=== PATIENT | female | born 1970 | race Two or more races ===

== ENCOUNTER → 2023-10-27 06:35 | Day surgery (SDC) | payer OTHER, SELFPAY | LOC: GI 06:35 | PROVIDERS: ATTENDING PHYSICIAN Internal Medicine Gastroenterology; FAMILY PHYSICIAN Internal Medicine | DX: K50.812 Crohn's disease of both small and large intestine with intestinal obstruction (principal); K56.699 Other intestinal obstruction unspecified as to partial versus complete obstruction; K62.4 Stenosis of anus and rectum; K62.6 Ulcer of anus and rectum; R21 Rash and other nonspecific skin eruption | CPT/HCPCS: 45380; 88305; 88342 ==

== ENCOUNTER → 2024-04-26 06:19 | Day surgery (SDC) | payer OTHER, SELFPAY | LOC: GI 06:19 | PROVIDERS: ATTENDING PHYSICIAN Internal Medicine Gastroenterology; FAMILY PHYSICIAN Internal Medicine | DX: K50.812 Crohn's disease of both small and large intestine with intestinal obstruction (principal); K62.6 Ulcer of anus and rectum; K62.4 Stenosis of anus and rectum; K64.4 Residual hemorrhoidal skin tags; L29.0 Pruritus ani | CPT/HCPCS: 45380; 88305; 88341; 88342 ==

== ENCOUNTER 2024-08-31 06:19 | Day surgery (SDC) | payer OTHER, SELFPAY | END 2024-08-31 12:54 | disposition home or self-care (01) | LOC: GI 06:19 | PROVIDERS: ATTENDING PHYSICIAN Internal Medicine Gastroenterology | DX: Z12.11 Encounter for screening for malignant neoplasm of colon (principal); K50.112 Crohn's disease of large intestine with intestinal obstruction; K62.6 Ulcer of anus and rectum; K62.4 Stenosis of anus and rectum | CPT/HCPCS: 45380; 88305 ==

== ENCOUNTER 2025-04-19 06:15 | Day surgery (SDC) | payer OTHER, SELFPAY | END 2025-04-19 12:24 | disposition home or self-care (01) | LOC: GI 06:15 | PROVIDERS: ATTENDING PHYSICIAN Internal Medicine Gastroenterology | DX: K50.912 Crohn's disease, unspecified, with intestinal obstruction (principal); K64.4 Residual hemorrhoidal skin tags; K62.4 Stenosis of anus and rectum | CPT/HCPCS: 45380; 88305; 88342 ==